=== PATIENT | female | born 1985 | race Caucasian/White ===

== ENCOUNTER 2016-09-20 14:54 | Emergency (ER) | payer MEDICAID ==
[~2016-09-20] VITALS: Ht 165.1 cm; Wt 74.0 kg
[~2016-09-20 14:54] MED LIST: CIPR500T4 PO; ONDA4TAB8 PO
[2016-09-20 15:38] VITALS: Ht 165.1 cm; Wt 74.0 kg
[2016-09-20 19:25] LABS: URINE BLOOD (Dip) POC 1+ (NEGATIVE)
[2016-09-20] MEDS ORDERED: NITR-58 PO (19:30)
--- NOTE | 2016-09-20 19:34 | ERD ---
ER Documentation Chief Complaint Date/Time DATE: 09/20/16 TIME: 19:31 Chief Complaint B flank pain and painful urination X 2 days. HPI Patient is a 31-year-old female here for dysuria, urgency and frequency 2 days. She denies hematuria and complains of right flank pain. Denies fever, chills, nausea, vomiting or diarrhea. Denies abdominal pain. Denies headache or dizziness. Denies chest pain, cough or shortness of breath. Denies abnormal vaginal discharge or bleeding. Last normal menstrual period was 2015. ROS All systems reviewed and are negative except as per history of present illness. Medications Home Meds Active Scripts Nitrofurantoin Monohyd Macrocr* (Macrobid*) 100 Mg Capsr, 100 MG PO BID for 7 Days, CAP Prov:RICARDO FORBES PA-C 09/20/16 Ciprofloxacin Hcl* (Ciprofloxacin Hcl*) 500 Mg Tablet, 500 MG PO BID for 7 Days , TAB Prov:TASH CHAMORRO PA-C 05/03/16 Ondansetron Hcl* (Zofran*) 4 Mg Tablet, 4 MG PO Q6H for NAUSEA AND/OR VOMITING, #30 TAB Prov:TASH CHAMORRO PA-C 05/03/16 Allergies Allergies: Coded Allergies: No Known Allergy (Unverified , 05/03/16) PMhx/Soc Medical and Surgical Hx: pt denies Medical Hx, pt denies Surgical Hx History of Surgery: No Anesthesia Reaction: No Hx Neurological Disorder: No Hx Respiratory Disorders: No Hx Cardiac Disorders: No Hx Psychiatric Problems: No Hx Miscellaneous Medical Probl: No Hx Alcohol Use: No Hx Substance Use: No Hx Tobacco Use: No FmHx Family History: No coronary disease, No diabetes, No other Physical Exam Vitals Vital Signs Date Time Temp Pulse Resp B/P Pulse Ox O2 Delivery O2 Flow Rate FiO2 09/20/16 15:38 97.4 82 18 111/70 100 Physical Exam GENERAL: Well-developed, well-nourished female. Appears in no acute distress. HEAD: Normocephalic, atraumatic. LUNG: Clear to auscultation bilaterally. No rhonchi, wheezing, rales or coarse breath sounds. HEART: Regular rate and rhythm. No murmurs, rubs or gallops. ABDOMEN: No scars, ecchymosis or rashes noted. Soft, nontender, and nondistended. Positive bowel sounds in all four quadrants. No rebound tenderness , no guarding. (-) McBurneys point tenderness. No CVA tenderness. Suprapubic tenderness SKIN: Normal color. Warm and dry. No rashes or lesions. Capillary refill < 2 seconds Results 24 hrs Laboratory Tests Test 09/20/16 19:24 Bedside Urine Blood 1+ Bedside Urine Glucose (UA) Negative Bedside Urine Ketones (LAB) Negative Bedside Urine Leukocyte Esterase (L 2+ Bedside Urine Nitrite (LAB) Negative Bedside Urine Protein (LAB) Negative Bedside Urine pH (LAB) 5.5 Procedures/MDM ER COURSE: I kept the patient and/or family informed of laboratory and diagnostic imaging results throughout the emergency room course. LAB INTERPRETATION: UA showed 1+ blood, 2+ leukocytes urine test was negative. MEDICAL DECISION MAKING: This is a 31-year-old female who presents with urinary symptoms. Vital signs were reviewed. Patient is afebrile. Patient is not hypoxic. Patient is not toxic or ill-appearing. Temperature 97.4. Patient has a UTI. Low suspicion for ovarian torsion, PID, tuboovarian abscess, ectopic , bowel obstruction, pyelonephritis, appendicitis. Low suspicion for ACS, AAA, perforated ulcer, bowel obstruction, cholecystitis, choledocholithiasis, cholangitis, pancreatitis, hepatic abscess, appendicitis, diverticulitis, nephrolithiasis, septic stone, obstructed stone, acute abdomen, sepsis. DISCHARGE: At this time, patient is stable for discharge and outpatient management with no new complaints during the ER course. Patient was sent home with Macrobid. Patient will be discharged home with instructions to recheck for new or worsening symptoms such as fever, nausea, weakness, LOC and to follow up with primary care in the next 1-2 days. Patient was advised to return to the ER for any new or worsening symptoms. Plan was discussed and patient and/or family understands and agrees. Home instructions were given. Departure Diagnosis: Primary Impression: UTI (urinary tract infection) Urinary tract infection type: site unspecified Hematuria presence: with hematuria Qualified Code: N39.0 - Urinary tract infection with hematuria, site unspecified Condition: Stable Patient Instructions: Understanding Urinary Tract Infections (UTIs) Additional Instructions: Llame al doctor GERALD salmona marcelo DELTA PARA DENTRO DE 1-2 BROWN.Dgale a la secretaria que nosotros le instruimos hacer esta delta.Avise o llame si tam condicin se empeora antes de la delta. Regresa aqui si peor o no mejor. RICARDO FORBES PA-C Sep 20, 2016 19:34
== END 2016-09-20 19:43 | disposition home or self-care (01) ==
LOC: FTE 14:54
DX: N39.0 Urinary tract infection, site not specified (principal)
CPT/HCPCS: 81003; 99283

== ENCOUNTER 2017-05-08 18:31 | Emergency (ER) | payer MEDICAID ==
[~2017-05-08] VITALS: Ht 162.6 cm; Wt 75.5 kg
[~2017-05-08 18:31] MED LIST changes: +NITR-58 PO
[2017-05-08 18:42] VITALS: Ht 162.6 cm; Wt 75.5 kg
[2017-05-08 19:41] LABS: URINE BLOOD (Dip) POC Negative (NEGATIVE)
[2017-05-08] MEDS ORDERED: FAMOTIDINE 20 MG INJ IV STA (19:45)
[2017-05-08] MEDS ORDERED: ONDANSETRON 4 MG INJ IV STA (19:45)
[2017-05-08] MEDS ORDERED: KETOROLAC 15 MG INJ IV STA (19:45)
[2017-05-08] MEDS ORDERED: SOD CHLORIDE 0.9% 1,000 ML IV STA (19:45)
--- NOTE | 2017-05-08 19:45 | ERD ---
ER Documentation Chief Complaint Date/Time DATE: 05/08/17 TIME: 19:40 Chief Complaint upper abd pain radaiting to back x 2 days, vomiting HPI This 31-year-old female presents to emergency department with complaint of epigastric pain , heart burn, vomiting pt vomiting after eating, reports sour taste in mouth , pt reports diarrhea this month . Headache, chest pain and SOB Pt has tried antacid at home ROS All systems reviewed and are negative except as per history of present illness. Medications Home Meds Active Scripts Diazepam* (Valium*) 5 Mg Tablet, 5 MG PO Q8, #10 TAB Prov:COURT,BASIA 05/08/17 Ranitidine Hcl* (Zantac*) 150 Mg Tablet, 150 MG PO BID, #60 TAB Prov:COURT,BASIA 05/08/17 Nitrofurantoin Monohyd Macrocr* (Macrobid*) 100 Mg Capsr, 100 MG PO BID for 7 Days, CAP Prov:RICARDO FORBES PA-C 09/20/16 Ciprofloxacin Hcl* (Ciprofloxacin Hcl*) 500 Mg Tablet, 500 MG PO BID for 7 Days , TAB Prov:TASH CHAMORRO PA-C 05/03/16 Ondansetron Hcl* (Zofran*) 4 Mg Tablet, 4 MG PO Q6H for NAUSEA AND/OR VOMITING, #30 TAB Prov:TASH CHAMORRO PA-C 05/03/16 Allergies Allergies: Coded Allergies: No Known Allergy (Unverified , 05/03/16) PMhx/Soc History of Surgery: No Anesthesia Reaction: No Hx Neurological Disorder: No Hx Respiratory Disorders: No Hx Cardiac Disorders: No Hx Psychiatric Problems: No Hx Miscellaneous Medical Probl: No Hx Alcohol Use: No Hx Substance Use: No Hx Tobacco Use: No Physical Exam Vitals Vital Signs Date Time Temp Pulse Resp B/P Pulse Ox O2 Delivery O2 Flow Rate FiO2 05/08/17 22:11 98.9 82 20 103/52 100 Room Air 05/08/17 18:42 98.9 65 20 143/95 100 VVS trage notes reviewed Physical Exam Const: Well-nourished, well-hydrated, holding stomach, grunting in pain in no acute distress obvious discomfort Head: Eyes: ENT: Normal External Ears, Nose and Mouth. Mucous membranes moist, pharynx pink uvula midline without shift, rises and falls with pronation Neck: Resp: Clear to auscultation bilaterally, no rales wheezes or rhonchi Cardio: S1-S2 no S3-S4 Abd: Soft, tympanic to percussion, epigastric and periumbilical tenderness, no Machuca's sign. No psoas sign, no CVA tenderness Skin: Back: No midline or flank tenderness, no CVA tenderness Ext: Neur: Awake and alert Psych: Normal Mood and Affect Result Diagram: 05/08/17200605/08/172006 Results 24 hrs Laboratory Tests Test 05/08/17 19:47 05/08/17 20:07 Bedside Urine pH (LAB) 7.5 Bedside Urine Protein (LAB) Negative Bedside Urine Glucose (UA) Negative Bedside Urine Ketones (LAB) Negative Bedside Urine Blood Negative Bedside Urine Nitrite (LAB) Negative Bedside Urine Leukocyte Esterase (L Trace White Blood Count 7.010^3/ul Red Blood Count 4.7810^6/ul Hemoglobin 13.5g/dl Hematocrit 40.3% Mean Corpuscular Volume 84.3fl Mean Corpuscular Hemoglobin 28.2pg Mean Corpuscular Hemoglobin Concent 33.5g/dl Red Cell Distribution Width 12.8% Platelet Count 09080^3/UL Mean Platelet Volume 9.2fl Neutrophils % 60.2% Lymphocytes % 30.5% Monocytes % 5.5% Eosinophils % 2.7% Basophils % 0.7% Nucleated Red Blood Cells % 0.0/100WBC Neutrophils # (Manual) 410^3/ul Lymphocytes # 2.110^3/ul Monocytes # 0.410^3/ul Eosinophils # 0.210^3/ul Basophils # 0.110^3/ul Nucleated Red Blood Cells # 0.010^3/ul Sodium Level 143mmol/L Potassium Level 3.6mmol/L Chloride Level 102mmol/L Carbon Dioxide Level 26mmol/L Anion Gap 19 Blood Urea Nitrogen 9mg/dl Creatinine 0.81mg/dl Glucose Level 107mg/dl Calcium Level 9.3mg/dl Total Bilirubin 0.2mg/dl Direct Bilirubin 0.00mg/dl Indirect Bilirubin 0.2mg/dl Aspartate Amino Transf (AST/SGOT) 27IU/L Alanine Aminotransferase (ALT/SGPT) 51IU/L Alkaline Phosphatase 50IU/L Total Protein 7.3g/dl Albumin 3.9g/dl Globulin 3.40g/dl Albumin/Globulin Ratio 1.14 Lipase 123U/L Current Medications Medications (Trade) Dose Ordered Sig/Ke Route PRN Reason Start Time Stop Time Status Last Admin Dose Admin Sodium Chloride (NS) 1,000 ml @ 1,000 mls/hr Q1H STAT IV 05/08/17 19:45 05/08/17 20:44 DC 05/08/17 20:31 Ondansetron HCl (Zofran Inj) 4 mg ONCE STAT IV 05/08/17 19:45 05/08/17 19:48 DC 05/08/17 20:31 Famotidine (Pepcid Iv) 20 mg ONCE STAT IV 05/08/17 19:45 05/08/17 19:48 DC 05/08/17 20:31 Ketorolac Tromethamine (Toradol) 15 mg ONCE STAT IV 05/08/17 19:45 05/08/17 19:48 DC 05/08/17 20:31 Diazepam (Valium) 5 mg ONCE ONCE PO 05/08/17 21:00 05/08/17 21:01 DC 05/08/17 21:00 Interpretation text CBC shows no evidence of hemorrhage or infection Chemistry shows no evidence of significant electrolyte abnormalities or renal insufficiency Liver function tests shows no evidence of acute biliary or hepatic dysfunction Lipase shows no evidence of acute pancreatitis Procedures/MDM PROCEDURE: Right upper quadrant ultrasound. CLINICAL INDICATION: Abdominal pain. TECHNIQUE: Multiple real-time longitudinal and transverse images of the right upper quadrant of the abdomen were acquired utilizing a curved array transducer. Images were reviewed on a high-resolution PACS workstation. COMPARISON: None. FINDINGS: The pancreas head and body are unremarkable. The pancreas tail is not well seen. The liver is normal in echogenicity. The liver measures 14.5 cm in length. No hepatic lesion or intrahepatic biliary ductal dilatation is seen. The portal vein is patent with hepatopetal flow. No gallstones or sludge are seen within the gallbladder lumen. The gallbladder wall is not thickened. There is no pericholecystic fluid. The common bile duct measures 4 mm in diameter, not dilated. The right kidney measures 9.3 cm in length. Renal echogenicity is normal. There is no hydronephrosis, urinary calculus, or renal mass. The visualized portions of the aorta and IVC are unremarkable. IMPRESSION: 1. Unremarkable right upper quadrant ultrasound. Electronically viewed and signed by .Husam Cadet MD, on 05/08/2017 21:18 This 31-year-old female presents to emergency department with abdominal pain, localized to epigastric and periumbilical quadrants. Patient reports nausea and a sour taste in her mouth, vomiting after eating. Patient feels a lump in her throat at times feels shortness of breath and chest pain secondary to burning sensation in throat. Patient has tried [id number] antacids for symptoms with little relief. Has not seen her physician for this complaint. I have no suspicion for ACS, dissecting aortic aneurysm, or pulmonary embolism. Clinical suspicion for cholecystitis, pancreatitis, GERD. Patient workup in emergency department involves pain control with Toradol IV, IV normal saline, Zofran, IV Pepcid, and gallbladder ultrasound. Documents pancreas is unremarkable, liver is normal in echogenicity. No hepatic lesions, biliary ducts is not dilated, there is no gallstones or sludge seen within the gallbladder lumen, no gallbladder wall thickening there is no pericholecystic fluid seen. There is no hydronephrosis or urinary calculus or renal mass. Documented unremarkable right upper quadrant ultrasound. Laboratory testing is normal without evidence of acute infection or anemia, no electrolyte dysfunction , no evidence of hepatitis, or pancreatitis. Patient reports improvement of symptoms after reassessment but reports back pain continues patient was given additional 5 mg Valium reassessed with improvement patient will be discharged home with Zantac 150 mg twice daily, and Valium 5 mg count of 10 follow-up with primary datastage architect for plan of care with suspected GERD/gastritis. Return to emergency department for fever, worsening of pain symptoms, or vomiting. I feel the patient is stable for discharge at this time with outpatient management as discussed. I have discussed results, examination findings, the treatment plan with the patient and family present prior to discharge. Indications for emergent reevaluation, side effects of medication were also discussed. All questions were answered. Patient verbalizes understanding and agrees with plan of care. Departure Diagnosis: Primary Impression: Gastritis Gastritis type: unspecified gastritis Chronicity: unspecified Gastritis bleeding: without bleeding Qualified Code: K29.70 - Gastritis without bleeding, unspecified chronicity, unspecified gastritis type Condition: Good Patient Instructions: Gerd (Adult), Lifestyle Changes for Controlling GERD [facility] Additional Instructions: Thank you for for coming to [facility] for your care today. Please ask your nurse or provider if you have questions about your care today and do not leave until all your questions have been answered. Please use any medications given as directed and follow-up with your doctor (or the doctor you were referred to) in the next 2-3 days. If you do not have a primary care doctor you may follow up at the [facility] (listed below). You may also use motrin and tylenol as needed for fever and/or pain unless instructed otherwise by your provider or nurse. Indications for more urgent follow-up have been discussed, but you may return to the Emergency Department at ANY time for any worrisome or worsening symptoms. If you have abdominal pain, please know that no test or exam you received is perfect and you should follow up within 8 hours for continued pain. If you had any imaging studies today, such as an X-Ray or CT Scan, these studies will be reviewed later by a radiologist. You will be called if there are important findings that were not identified today, so make sure the contact information you provided at registration is correct. If you received any narcotic pain control medicine today, such as Vicodin, Morphine or Dilaudid, your coordination and judgment may be affected for a number of hours. Please do not drive or operate heavy machinery, and you may want someone to assist you at home. If you were given a prescription for narcotic medication, be aware that it is very addictive- use sparingly and only if necessary. BASIA YUN May 08, 2017 19:45
[2017-05-08 20:24] LABS: BASOPHIL # 0.1 10^3/ul (0.0-0.1); BASOPHILS % 0.7 % (0.0-2.0); EOSINOPHILS # 0.2 10^3/ul (0.0-0.5); EOSINOPHILS % 2.7 % (0.0-7.0); HEMATOCRIT 40.3 % (37.0-47.0); HEMOGLOBIN 13.5 g/dl (12.0-16.0); LYMPHOCYTES # 2.1 10^3/ul (0.8-2.9); LYMPHOCYTES % 30.5 % (15.0-51.0); MEAN CORPUSCULAR HEMOGLOBIN 28.2 pg (29.0-33.0); MEAN CORPUSCULAR HGB CONC 33.5 g/dl (32.0-37.0); MEAN CORPUSCULAR VOLUME 84.3 fl (82.0-101.0); MEAN PLATELET VOLUME 9.2 fl (7.4-10.4); MONOCYTE # 0.4 10^3/ul (0.3-0.9); MONOCYTES % 5.5 % (0.0-11.0); NEUTROPHILS % 60.2 % (39.0-77.0); PLATELET COUNT 327 10^3/UL (140-415); RED BLOOD COUNT 4.78 10^6/ul (4.20-5.40); RED CELL DISTRIBUTION WIDTH 12.8 % (11.5-14.5)
[2017-05-08 20:49] LABS: ALBUMIN 3.9 g/dl (3.3-4.9); ALBUMIN/GLOBULIN RATIO 1.14; BILIRUBIN,INDIRECT 0.2 mg/dl (0-1.1); BILIRUBIN,TOTAL 0.2 mg/dl (0.2-1.3); CALCIUM 9.3 mg/dl (8.4-10.2); CREATININE 0.81 mg/dl (0.44-1.00); POTASSIUM 3.6 mmol/L (3.5-5.1); TOTAL PROTEIN 7.3 g/dl (6.1-8.1)
[2017-05-08] MEDS ORDERED: DIAZEPAM 5 MG TAB PO ONE (21:00)
--- NOTE | 2017-05-08 21:19 | RADRPT ---
PROCEDURE: Right upper quadrant ultrasound. CLINICAL INDICATION: Abdominal pain. TECHNIQUE: Multiple real-time longitudinal and transverse images of the right upper quadrant of th e abdomen were acquired utilizing a curved array transducer. Images were reviewed on a high-resoluti on PACS workstation. COMPARISON: None. FINDINGS: The pancreas head and body are unremarkable. The pancreas tail is not well seen. The liver is normal in echogenicity. The liver measures 14.5 cm in length. No hepatic lesion or in trahepatic biliary ductal dilatation is seen. The portal vein is patent with hepatopetal flow. No gallstones or sludge are seen within the gallbladder lumen. The gallbladder wall is not thickene d. There is no pericholecystic fluid. The common bile duct measures 4 mm in diameter, not dilated. The right kidney measures 9.3 cm in length. Renal echogenicity is normal. There is no hydronephros is, urinary calculus, or renal mass. The visualized portions of the aorta and IVC are unremarkable. IMPRESSION: 1. Unremarkable right upper quadrant ultrasound. RPTAT: HTAR .Husam Cadet MD, MD Date Time Electronically viewed and signed by .Husam Cadet MD, MD on 05/08/2017 21:18 .R/
[2017-05-08] MEDS ORDERED: RANI150T9 PO (22:01)
[2017-05-08] MEDS ORDERED: DIAZ-90 PO (22:02)
[2017-05-08 22:11] VITALS: BP 103/52; PULSE 82; RESP 20; TEMP 98.9
== END 2017-05-08 22:12 | disposition home or self-care (01) ==
LOC: FTE 18:31
DX: K29.70 Gastritis, unspecified, without bleeding (principal); R11.10 Vomiting, unspecified
CPT/HCPCS: 36415; 76705; 80053; 81003; 83690; 85025; 96374; 96375; J1885; J2405; J7030; Z7502; Z7610